=== PATIENT | male | born 1950 | race Hispanic/Latino ===

== ENCOUNTER 2019-03-25 21:52 | Emergency (ER) | payer MEDICARE, SELFPAY ==
--- NOTE | 2019-03-25 22:32 | Emergency Department Report ---
ED Seizure HPI - General Chief Complaint: Seizure Stated Complaint: SEIZURES Time Seen by Provider: 03/25/19 22:11 Source: patient, EMS Mode of arrival: Stretcher Limitations: Physical Limitation - History of Present Illness Initial Comments: 68-year-old male, history of ESRD, CHF, diabetes, A. fib (on Eliquis ), colon cancer status post resection, presents to ED following seizure. Patient is currently at [facility] inpatient rehab after having surgery on his left foot for diabetic ulcer approximately 3 weeks ago. Tonight, patient was ly ing in bed and staff reports he became unresponsive. Per staff, seizure activity was reported for approximately 1 minute. Patient was unresponsive for approximately 3 minutes. Patient denies urinary incontinence or tongue injury. Patient is currently at baseline. He has no previous history of seizures. He denies headache. Patient reports that he tripped and fell on yesterday. Patient states he was walking with his crutches and his foot hit the crutch and he fell down on his left side. States he has been having pain to the left shoulder and left hip from his fall. MD Complaint: seizure -: This evening Description of Episode: loss of consciousness -: minutes(s) (1) Witnessed:: Yes Trauma: No Seizure History: none Place: other Associated Symptoms: denies: chest pain, fever/chills, shortness of breath Treatments Prior to Arrival: none - Related Data Home Medications Medication Instructions Recorded Confirmed Last Taken AtorvaSTATin 10 mg PO HS 03/25/19 03/25/19 Unknown Docusate Sodium 100 mg PO DAILY 03/25/19 03/25/19 Unknown Eliquis 5 mg pe PO DAILY 03/25/19 03/25/19 Unknown Gabapentin 300 mg PO DAILY 03/25/19 03/25/19 Unknown Lispro Insulin 100 units SUB-Q PRN 03/25/19 03/25/19 Unknown Metoprolol 25 mg PO DAILY 03/25/19 03/25/19 Unknown Tradjenta 5 mg PO DAILY 03/25/19 03/25/19 Unknown allopurinoL 100 mg PO DAILY 03/25/19 03/25/19 Unknown Allergies Allergy/AdvReac Type Severity Reaction Status Date / Time JMI Inhibitors Allergy Unknown Verified 03/25/19 22:04 clotrimazole [From Lotrimin] Allergy Unknown Verified 03/25/19 22:04 spironolactone Allergy Unknown Verified 03/25/19 22:04 sulfamethoxazole Allergy Unknown Verified 03/25/19 22:04 [From Bactrim] trimethoprim [From Bactrim] Allergy Unknown Verified 03/25/19 22:04 ED Review of Systems ROS: Stated complaint: SEIZURES Other details as noted in HPI Comment: All other systems reviewed and negative Constitutional: denies: chills, fever Respiratory: denies: shortness of breath Cardiovascular: denies: chest pain Gastrointestinal: denies: nausea, vomiting Musculoskeletal: as per HPI Neurological: denies: headache ED Past Medical Hx - Past Medical History Previous Medical History?: Yes Hx Hypertension: Yes Hx Diabetes: Yes Hx Renal Disease: Yes - Surgical History Past Surgical History?: Yes Additional Surgical History: brent surgery - Social History Smoking Status: Never Smoker Substance Use Type: None - Medications Home Medications: Home Medications Medication Instructions Recorded Confirmed Last Taken Type AtorvaSTATin 10 mg PO HS 03/25/19 03/25/19 Unknown History Docusate Sodium 100 mg PO DAILY 03/25/19 03/25/19 Unknown History Eliquis 5 mg pe PO DAILY 03/25/19 03/25/19 Unknown History Gabapentin 300 mg PO DAILY 03/25/19 03/25/19 Unknown History Lispro Insulin 100 units SUB-Q PRN 03/25/19 03/25/19 Unknown History Metoprolol 25 mg PO DAILY 03/25/19 03/25/19 Unknown History Tradjenta 5 mg PO DAILY 03/25/19 03/25/19 Unknown History allopurinoL 100 mg PO DAILY 03/25/19 03/25/19 Unknown History ED Physical Exam - General Limitations: Physical Limitation General appearance: alert, in no apparent distress - Head Head exam: Present: atraumatic, normocephalic - Eye Eye exam: Present: normal appearance, PERRL, EOMI - ENT ENT exam: Present: mucous membranes moist - Neck Neck exam: Present: normal inspection, full ROM. Absent: meningismus - Respiratory Respiratory exam: Present: normal lung sounds bilaterally. Absent: respiratory distress - Cardiovascular Cardiovascular Exam: Present: normal rhythm, tachycardia - GI/Abdominal GI/Abdominal exam: Present: soft. Absent: distended, tenderness - Extremities Exam Extremities exam: Present: other (Ex-fix and bandages present to left lower extremity, patient able to move toes; decreased range of motion at left hip secondary to pain) - Neurological Exam Neurological exam: Present: alert, oriented X3, CN II-XII intact. Absent: motor sensory deficit - Psychiatric Psychiatric exam: Present: normal affect, normal mood - Skin Skin exam: Present: warm, dry, intact, normal color ED Course Vital Signs 03/25/19 03/25/19 03/26/19 22:04 22:31 00:52 Temperature 98 F Pulse Rate 114 H 89 Respiratory 20 20 16 Rate Blood Pressure 113/58 Blood Pressure 107/57 [Left] O2 Sat by Pulse 96 88 96 Oximetry 03/26/19 03/26/19 03/26/19 02:35 04:37 04:51 Temperature Pulse Rate 85 80 80 Respiratory 16 16 16 Rate Blood Pressure Blood Pressure 112/56 112/59 127/94 [Left] O2 Sat by Pulse 95 96 100 Oximetry - Consultations Consultation #1: 03/26/19 02:30 Pt requesting transfer to [facility] since he was there for his most recent admission. Will contact the transfer line. 03/26/19 03:00 Transfer line states have to contact specialist before hospitalist. So, Mobile neurologist contacted, does not advise lety at this time. Instructed transfer telegraph lineman to contact hospitalist. 03/26/19 03:45 Contacted transfer line again. States still waiting for hospitalist to call back. 03/26/19 04:24 Spoke w/ Mobile hospitalist, Dr Keys. Agrees to accept transfer as long as I speak with the ortho on-call. Transfer telegraph lineman to contact ortho. 03/26/19 04:58 Transfer line states orthopedist agrees to consult. Did not need to speak with me. ED Medical Decision Making - Lab Data Result diagrams: 03/26/19 00:14 03/26/19 00:14 - EKG Data -: EKG Interpreted by Me EKG shows normal: sinus rhythm, axis, intervals, QRS complexes, ST-T waves Rate: tachycardia (rate 108) - EKG Data Interpretation: no acute changes - Radiology Data Radiology results: report reviewed, image reviewed - Medical Decision Making 68-year-old male presents from rehab facility following new onset seizure. Patient is currently at baseline. No neuro deficits present. CT head is negative. Patient reports a fall 1 day ago when ambulating with his crutches. X-ray shows left femoral neck fracture. Upon arrival patient was slightly hypoxic, 88% on room air. Chest x-ray was done which showed possible atelec tasis versus evolving pneumonia. So blood cultures were drawn and patient given a dose of cefepime. I decided to order a CTA of the chest due to patient's immobility and recent surgery to his left lower extremity, to rule out PE. CTA chest is negative for PE, and there is no mention of infiltrate only bilateral atelectasis. Therefore, pneumonia is unlikely. Patient is afebrile and WBCs are normal. Patient only received 1 dose of cefepime. No seizure activity here in the ED he has been at baseline. Due to the fact that patient only had one seizure and immediately returned to baseline, antiepileptic was not given. Patient requests transfer to [facility], as he was recently discharged from there couple of weeks ago following his procedures. I spoke with the neurologist on-call who agrees with no antiepileptics at this time. The orthopedic physician on-call was contacted and will provide consult for patient's hip fracture. I spoke to the hospitalist physician who accepts tra nsfer. - Differential Diagnosis intracranial abnormality, electrolyte abnormality, infection Critical care attestation.: If time is entered above; I have spent that time in minutes in the direct care of this critically ill patient, excluding procedure time. ED Disposition Clinical Impression: New onset seizure, Fracture of left hip, Pneumonia, Anemia Disposition: [id number]/TX-[id number] ANOTHER TYPE [facility]THCARE Is pt being admited?: No Condition: Stable Referrals: PRIMARY CARE, [Primary Care Provider] - 3-5 Days Time of Disposition: 04:59
--- NOTE | 2019-03-25 22:59 | Cat Scan Report ---
CT head/brain wo con INDICATION / CLINICAL INFORMATION: seizure. TECHNIQUE: Axial CT imaging of the brain was obtained without contrast. Coronal and sagittal reformatted imaging obtained and reviewed. All CT scans at this location are performed using CT dose reduction for ALAR A by means of automated exposure control. COMPARISON: None available. FINDINGS: No intracranial hemorrhage, mass, or midline shift is noted. No extra-axial fluid collection or sugge stion of acute territorial infarction. Ventricular system and basilar cisterns are unremarkable. Mild age-appropriate atrophy is noted. Visualized paranasal sinuses and mastoid air cells are well aerated and grossly clear. No calvarial a bnormality of significance. IMPRESSION: 1. No acute intracranial abnormality. Signer Name: Jo Hinojosa MD Signed: 03/25/2019 10:55 PM Workstation Name: [id number]
--- NOTE | 2019-03-25 23:26 | XRay Report ---
LEFT HIP 3 VIEWS INDICATION / CLINICAL INFORMATION: MAIN: pain, injury FALL COMPARISON: None available. FINDINGS: BONES / JOINT(S): There is a left femoral neck fracture. There is mild superior displacement of the d istal fragment . SOFT TISSUES: No significant abnormality. ADDITIONAL FINDINGS: None. Signer Name: Dion Haddad MD Signed: 03/25/2019 11:22 PM Workstation Name: [id number]
--- NOTE | 2019-03-25 23:29 | XRay Report ---
LEFT SHOULDER 3 VIEWS INDICATION / CLINICAL INFORMATION: injury, pain COMPARISON: Chest radiograph from 2012 FINDINGS: BONES / JOINT(S): There is degenerative change in the glenohumeral joint. No dislocation is seen. The re is mild widening of the AC joint. No discrete fracture is seen. SOFT TISSUES: No significant abnormality. ADDITIONAL FINDINGS: None. Signer Name: Dion Haddad MD Signed: 03/25/2019 11:25 PM Workstation Name: [id number]
--- NOTE | 2019-03-25 23:30 | XRay Report ---
CHEST 1 VIEW INDICATION / CLINICAL INFORMATION: hypoxic. COMPARISON: 02/14/2011 FINDINGS: SUPPORT DEVICES: None. HEART / MEDIASTINUM: No significant abnormality. LUNGS / PLEURA: There is patchy airspace opacity in the left lung base which could represent atelecta sis or evolving pneumonia. The remainder the lungs are clear.. No pneumothorax. ADDITIONAL FINDINGS: No significant additional findings. IMPRESSION: 1. There is patchy airspace opacity in the left lung base which could represent atelectasis or an jake lving pneumonia. Signer Name: Dion Haddad MD Signed: 03/25/2019 11:26 PM Workstation Name: [id number]
[2019-03-26] MEDS ORDERED: CEFEPIME/NS 2 GM/100 ML 2 GM/100 ML BAG IV ONE (00:18)
[2019-03-26 00:36] LABS: Hematocrit 24.2 % (35.5-45.6); Hemoglobin 7.7 gm/dl (11.8-15.2); Mean Corpuscular HGB Conc 32 % (32-34); Mean Corpuscular Volume 91 fl (84-94); Platelet Count 210 K/mm3 (140-440); Red Blood Count 2.65 M/mm3 (3.65-5.03); Red Cell Distribution Width 16.6 % (13.2-15.2)
[2019-03-26 00:40] LABS: INR 1.53 (0.87-1.13)
[2019-03-26 00:41] LABS: Partial Thromboplastin Time 36.6 Sec. (24.2-36.6)
[2019-03-26 00:43] LABS: Calcium 8.7 mg/dL (8.4-10.2)
[2019-03-26 00:45] LABS: Albumin 3.2 g/dL (3.9-5)
[2019-03-26 00:48] LABS: Alanine Aminotransferase < 5 units/L (7-56); Bilirubin,Direct < 0.2 mg/dL (0-0.2)
[2019-03-26] MEDS ORDERED: MORPHINE 2 MG/1 ML INJ IV ONE (01:15)
[2019-03-26 01:54] LABS: Chol/HDL Ratio 2.43 %; HDL Cholesterol 53 mg/dL (40-59); LDL Cholesterol,Direct 71 mg/dL (50-130)
--- NOTE | 2019-03-26 02:27 | Cat Scan Report ---
CTA of the chest with 3D Reconstruction Indication: ,hypoxia Technique: TECHNIQUE: Axial CT images were obtained through the chest after injection of 100 cc of Omnipaque 350 IV contrast. 3 plane MIP reconstructions were produced. All CT scans at this location are performed using CT dose reduction for ALARA by means of automated exposure control. COMPARISON: None Automatic exposure control was utilized in an attempt to reduce radiation dose. Findings: Pulmonary arteries: The main pulmonary artery and right and left pulmonary artery branches fill satis factorily with contrast. No pulmonary embolus is seen. Lungs: There is bibasilar atelectasis. There is no pneumothorax. Mediastinum: The heart is mildly enlarged. Aorta: Normal in diameter. No dissection seen within limits of this exam. Impression: No pulmonary embolus is seen There is mild basilar atelectasis. Signer Name: Dion Haddad MD Signed: 03/26/2019 2:23 AM Workstation Name: [id number]
[2019-03-26 04:51] VITALS: BP 127/94
== END 2019-03-26 06:37 | disposition other institution (70) ==
LOC: ED 21:52
DX: S72.002A Fracture of unspecified part of neck of left femur, initial encounter for closed fracture (principal); J18.9 Pneumonia, unspecified organism; D64.9 Anemia, unspecified; G40.89 Other seizures; I13.2 Hypertensive heart and chronic kidney disease with heart failure and with stage 5 chronic kidney disease, or end stage renal disease; E11.22 Type 2 diabetes mellitus with diabetic chronic kidney disease; E11.621 Type 2 diabetes mellitus with foot ulcer; N18.6 End stage renal disease; I50.9 Heart failure, unspecified; I48.91 Unspecified atrial fibrillation; Z98.890 Other specified postprocedural states; Z88.2 Allergy status to sulfonamides; Z88.8 Allergy status to other drugs, medicaments and biological substances; Z79.899 Other long term (current) drug therapy; W18.39XA Other fall on same level, initial encounter; Y93.01 Activity, walking, marching and hiking; Y92.89 Other specified places as the place of occurrence of the external cause; Y99.8 Other external cause status
CPT/HCPCS: 36415; 70450; 71045; 71275; 73030; 73502; 80048; 80061; 80076; 83880; 84484; 85025; 85610; 85730; 87040; 93005; 93010; 96365; 96375; 99285; J0692; J2270; Q9967